=== PATIENT | female | born 1950 | race African-American/Black ===

== ENCOUNTER 2021-07-29 10:10 | Outpatient (CLI) | payer MEDICARE ==
--- NOTE | 2021-07-29 12:57 | XRay Report ---
RIGHT SHOULDER 3 VIEW(S) INDICATION / CLINICAL INFORMATION: RIGHT SHOULDER PAIN COMPARISON: None available. FINDINGS: BONES / JOINT(S): No acute fracture or subluxation. 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 SOFT TISSUES: No significant abnormality. ADDITIONAL FINDINGS: None. Signer Name: Ryan Loving MD Signed: 07/29/2021 12:52 PM Workstation Name: [employer]
--- NOTE | 2021-07-29 12:57 | XRay Report ---
BILATERAL KNEE 3 VIEW(S) INDICATION / CLINICAL INFORMATION: BILATERAL KNEE PAIN COMPARISON: None available. FINDINGS: BONES / JOINT(S): No acute fracture or subluxation. No significant arthritis. SOFT TISSUES: No significant abnormality. ADDITIONAL FINDINGS: None. Signer Name: Ryan Loving MD Signed: 07/29/2021 12:53 PM Workstation Name: [email or web address]
== END 2021-07-29 10:11 | disposition home or self-care (01) ==
LOC: XRAY 10:10
PROVIDERS: ATTEND Orthopaedic Surgery
DX: M19.011 Primary osteoarthritis, right shoulder (principal); M25.562 Pain in left knee
CPT/HCPCS: 73565